=== PATIENT | male | born 1970 | race Caucasian/White ===

== ENCOUNTER 2023-11-18 07:39 | Day surgery (SDC) | payer OTHER ==
[2023-11-18] MEDS: LACTATED RINGERS 1,000 ML IV SCH (08:37)
[2023-11-18] MEDS ORDERED: PROPOFOL 10 MG/ML 20 ML VIAL IV ONE (08:46)
--- NOTE | 2023-11-18 08:57 | P.GSHP ---
History of Present Illness H&P Date: 11/18/23 Chief Complaint: Screen colonoscopy This a 53-year-old male presents today for screening colonoscopy. Patient denies a significant GI complaints. Past Medical History Additional Past Medical History / Comment(s): Routine colonoscopy History of Any Multi-Drug Resistant Organisms: None Reported Past Surgical History: Appendectomy Past Anesthesia/Blood Transfusion Reactions: Postoperative Nausea & Vomiting (PONV) Smoking Status: Current every day smoker - Past Family History Mother Family Medical History: No Reported History Father Family Medical History: CVA/TIA Medications and Allergies Home Medications Medication Instructions Recorded Confirmed Type No Known Home Medications 11/16/23 11/18/23 History Allergies Allergy/AdvReac Type Severity Reaction Status Date / Time No Known Allergies Allergy Verified 11/18/23 08:30 Surgical - Exam Vital Signs Temp Pulse Resp BP Pulse Ox 97.7 F 99 16 155/90 96 11/18/23 08:32 11/18/23 08:32 11/18/23 08:32 11/18/23 08:32 11/18/23 08:32 - General well developed, well nourished, no distress - Eyes PERRL - ENT normal pinna - Neck no masses - Respiratory normal expansion - Cardiovascular Rhythm: regular - Abdomen Abdomen: soft, non tender Assessment and Plan Plan: We'll perform screening colonoscopy
--- NOTE | 2023-11-18 08:59 | P.OP ---
Date of Procedure: 11/18/23 Preoperative Diagnosis: Screening colonoscopy Postoperative Diagnosis: Mild diverticulosis Procedure(s) Performed: Colonoscopy Anesthesia: MAC Surgeon: Ramses Crowell Pathology: none sent Condition: stable Disposition: PACU Description of Procedure: The patient's placed on the endoscopy table in the lateral position. He received IV sedation. Digital rectal exam was performed. This revealed no abnormalities. Flexible colonoscope was then placed patient anus and passed throughout the entire colon. The ileocecal valve was visually is. The cecum, ascending and transverse colon appeared normal. The descending and sigmoid colon had a few scattered diverticula. The scope was then brought back the rectum and this appeared normal. Scope withdrawn for patient.
[2023-11-18 09:07] VITALS: TEMP 97.7
[2023-11-18 09:43] VITALS: BP 144/95; PULSE 84; RESP 18
== END 2023-11-18 09:43 | disposition home or self-care (01) ==
LOC: ORWHC2ENDO 07:39
PROVIDERS: ATTEND Surgery
DX: Z12.11 Encounter for screening for malignant neoplasm of colon (principal); K57.30 Diverticulosis of large intestine without perforation or abscess without bleeding; F17.200 Nicotine dependence, unspecified, uncomplicated; Z82.3 Family history of stroke; Z90.49 Acquired absence of other specified parts of digestive tract; Z79.899 Other long term (current) drug therapy
CPT/HCPCS: 45378; J2704